=== PATIENT | male | born 1990 | race Caucasian/White ===

== ENCOUNTER 2022-08-20 07:54 | Outpatient (CLI) | payer OTHER ==
[~2022-08-20 07:54] MED LIST: GADOBUTROL 7.5 MMOL/7.5 ML VIAL ONE
[2022-08-20] MEDS ORDERED: GADOBUTROL 7.5 MMOL/7.5 ML VIAL IVP ONE (09:12)
--- NOTE | 2022-08-22 12:31 | MRI Report ---
PROCEDURE: FOOT W/WO - RT INDICATIONS: NODULE 1ST METATARSEL CONTRAST: GADAVIST 7.0 TECHNIQUE: Noncontrast sagittal T1 spin echo and T2 fast spin echo with fat saturation, long-axis T1 spin echo a nd T2 fast spin echo with fat saturation; short-axis T1 spin echo, proton density fast spin echo, and T2 fast spin echo with fat saturation through the forefoot. Post-contrast short axis, long axis, an d sagittal T1 spin echo with fat saturation through the forefoot. COMPARISON: None. FINDINGS: Image quality: Excellent. Bones and joints: Mild osseous edema is seen at the plantar aspect of the 1st metatarsal head with m ild to moderate degenerative changes of the 1st metatarsophalangeal joint. Mild degenerative changes are seen at the interphalangeal joints of the toes. The sesamoid bones appear in expected positions, without internal edema. No intraosseous lesions. Soft tissues: Circumscribed [id number] lesion is seen in the subcutaneous tissues dorsal to th e distal 1st metatarsal shaft measuring approximately 11 x 3 x 5 mm. Postcontrast images demonstrate no solid enhancing components. No solid soft tissue mass is seen in the forefoot. Small amount of flu id is seen within the extensor pollicis longus tendon sheath at the dorsal aspect of the foot, consis tent with mild tenosynovitis. The visualized plantar foot muscles demonstrate normal signal and bulk. Visualized flexor and extensor tendons appear intact, without tenosynovitis. The distal insertions of the peroneus brevis and longus tendons appear intact. The principal Lisfranc ligament appears in tact. Sagittal images demonstrate no evidence for plantar plate tears. IMPRESSION: 1.Focal circumscribed [id number] lesion measuring 11 mm is seen in the subcutaneous tissues at the dorsal medial aspect of the foot overlying the 1st metatarsal shaft. No solid enhancing component . Findings most likely represent a ganglion cyst. 2.Mild extensor hallucis longus tenosynovitis. 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 Mild osseous edema at the plantar as pect of the 1st metatarsal head is likely degenerative in nature. Reviewed by: Jeet Gipson MD on 08/22/2022 12:30 PM PDT Approved by: Jeet Gipson MD on 08/22/2022 12:30 PM PDT Station ID: [id number]
== END 2022-08-20 07:55 | disposition home or self-care (01) ==
LOC: DI 07:54
PROVIDERS: ATTEND Podiatrist
DX: R22.41 Localized swelling, mass and lump, right lower limb (principal); M65.9 Synovitis and tenosynovitis, unspecified; M19.071 Primary osteoarthritis, right ankle and foot
CPT/HCPCS: 73720; A9585